=== PATIENT | female | born 1995 | race African-American/Black ===

== ENCOUNTER 2019-12-23 18:54 | Emergency (ER) | payer OTHER ==
[~2019-12-23] VITALS: Ht 162.6 cm; Wt 127.0 kg
[2019-12-23] MEDS ORDERED: VOLTAREN GEL 1100 G2 TOP (20:18)
[2019-12-23] MEDS ORDERED: MOBIC7.5 MG PO (20:18)
[2019-12-23 20:24] VITALS: BP 161/99
== END 2019-12-23 20:29 | disposition home or self-care (01) ==
LOC: ER 18:54
DX: M25.511 Pain in right shoulder (principal); M25.561 Pain in right knee; F17.210 Nicotine dependence, cigarettes, uncomplicated; V43.52XA Car driver injured in collision with other type car in traffic accident, initial encounter; Y93.89 Activity, other specified; Y92.89 Other specified places as the place of occurrence of the external cause; Y99.8 Other external cause status